=== PATIENT | male | born 1985 | race Caucasian/White ===

== ENCOUNTER 2018-01-21 11:36 | Emergency (ER) | payer OTHER ==
[2018-01-21] MEDS ORDERED: Cephalexin 500 MG Cap ONE (13:00)
--- NOTE | 2018-01-21 15:02 | EDM.PDOC ---
ED HPI GENERAL MEDICAL PROBLEM - General Chief Complaint: General Stated Complaint: LACERATION Time Seen by Provider: 01/21/18 12:10 Source of Information: Reports: Patient History Limitations: Reports: No Limitations - History of Present Illness INITIAL COMMENTS - FREE TEXT/NARRATIVE: Patient is a 32 year old man who [place] this [place]. He caught a 38 inch [place] and when he was trying to get the hook out of its mouth it flipped and bit his right thumb. He has a 2 cm superficial laceration on the medial right thumb. He has normal sensation and normal movement of his right thumb. No other complaints. Patient is up to date on his tetanus shot. Onset: Today Onset Date: 01/21/18 Onset Time: 11:00 Duration: Hour(s): (1) Location: Reports: Upper Extremity, Right Quality: Reports: Sharp Severity: Mild Improves with: Reports: None Worsens with: Reports: None Context: Reports: Other (Fishing and [place] bit him.) Treatments WE[employer] ARCHITECT: Reports: Other (see below) (Right thumb was bandaged to stop the bleeding.) Right 1-Thumb Pain Score (Numeric/FACES): 0 - Related Data Allergies Allergy/AdvReac Type Severity Reaction Status Date / Time No Known Allergies Allergy Verified 01/21/18 14:38 Home Meds: Home Meds NK [No Known Home Meds] 01/21/18 [History] Past Medical History Other Cardiovascular History: Pt states he ahd Afib "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 ED EXAM, GENERAL - Physical Exam Exam: See Below Exam Limited By: No Limitations General Appearance: Alert, WD/WN, No Apparent Distress Eye Exam: Bilateral Eye: EOMI, Normal Fundi, Normal Inspection, Proptosis Ears: Normal External Exam, Normal Canal, Hearing Grossly Normal, Normal TMs Ear Exam: Bilateral Ear: Auricle Normal, Canal Normal, TM normal Nose: Normal Inspection, Normal Mucosa, No Blood Throat/Mouth: Normal Inspection, Normal Lips, Normal Teeth, Normal Gums, Normal Oropharynx, Normal Voice, No Airway Compromise Head: Atraumatic, Normocephalic Neck: Normal Inspection, Supple, Non-Tender, Full Range of Motion Respiratory/Chest: No Respiratory Distress Cardiovascular: Normal Peripheral Pulses, Regular Rate, Rhythm, No Edema, No Gallop, No JVD, No Murmur, No Rub GI/Abdominal: Normal Bowel Sounds, Soft, Non-Tender, No Organomegaly, No Distention, No Abnormal Bruit, No Mass Extremities: Other (2 cm superficial laceration into the fatty layer of the skin. Wound explored to base and had no nerve or tendon involvement.) Neurological: Alert, Oriented, CN II-XII Intact, Normal Cognition, Normal Gait, Normal Reflexes, No Motor/Sensory Deficits Psychiatric: Normal Affect, Normal Mood Skin Exam: Wound/Incision (2 cm laceration right thumb) Lymphatic: No Adenopathy ED GENERAL MEDICAL PROCEDURES - Laceration/Wound Repair Right Medial Proximal Finger Lac/wound length in cm: 2 Appearance: Superficial, Clean Distal NVT: Neuro & Vascular Intact, No Tendon Injury Anesthetic Type: Local Local Anesthesia - Lidocaine (Xylocaine): 1% Plain Local Anesthetic Volume: 3cc Skin Prep: Chlorhexidine (Hibiciens) Exploration/Debridement/Repair: Wound Explored, In a Bloodless Field, Explored to Base, No Foreign Material Found Closed with: Sutures Suture Size: 4-0 # of Sutures: 8 Suture Type: Nylon (Ethilon) Course - Vital Signs Text/Narrative:: Unremarkable ED course. He was put on Cephalexin 500 mg po bid x 10 days to prevent infection. He will see his PCP in 7 days to remove his sutures. Wound Care reviewed with patient and literature was given by Nursing. Departure - Departure Time of Disposition: 15:11 Disposition: Home, Self-Care 01 Condition: Good Clinical Impression: Laceration of right thumb without complication - Discharge Information Instructions: Laceration Care, Adult, [id number], Sutured Wound Care, Easy-to -Read Referrals: PCP,None [Primary Care Provider] - Forms: ED Department Discharge Additional Instructions: Take antibiotic twice a day until gone. Keep area clean and dry. Take dressing off tonight and check the area. Apply antibiotic ointment and new dressings as needed. Follow up with primary care provider to have sutures removed in 7 days. If you have any questions or concerns please call us at [phone].
== END 2018-01-21 13:17 | disposition home or self-care (01) ==
LOC: LB.ED 11:36
DX: S61.011A Laceration without foreign body of right thumb without damage to nail, initial encounter (principal); W45.8XXA Other foreign body or object entering through skin, initial encounter
CPT/HCPCS: 12001; 99283-25; A9270-GY